=== PATIENT | male | born 1995 | race Caucasian/White ===

== ENCOUNTER 2021-06-12 09:58 | Emergency (ER) | payer BC, MEDICAID ==
[~2021-06-12] VITALS: Ht 165.1 cm; Wt 100.0 kg
[~2021-06-12 09:58] MED LIST: AMPH10CA7 PO; CLIN150C2 PO; GUAI120015 PO; LIDO20SO PO
[2021-06-12 10:47] VITALS: BP 164/54
[2021-06-12] MEDS ORDERED: ALBU6.7H9 INH (12:09)
[2021-06-12] MEDS ORDERED: PRED20TA PO (12:09)
== END 2021-06-12 13:28 | disposition home or self-care (01) ==
LOC: ER 09:59
DX: J40 Bronchitis, not specified as acute or chronic (principal); Z20.822 Contact with and (suspected) exposure to COVID-19; J02.9 Acute pharyngitis, unspecified; R06.02 Shortness of breath; R05.9 Cough, unspecified; R09.81 Nasal congestion; Z88.0 Allergy status to penicillin; Z79.2 Long term (current) use of antibiotics; Z79.899 Other long term (current) drug therapy
CPT/HCPCS: 71045; 87635; 99284; 99406; C9803